=== PATIENT | female | born 1945 | race Caucasian/White ===

== ENCOUNTER 2017-12-23 09:50 | Emergency (ER) | payer MEDICARE, OTHER ==
--- NOTE | 2017-12-23 11:09 | XRAY Preliminary Report ---
Exam: XR CHEST 2 VIEW X-RAY IMPRESSION: 1. No consolidation or heart failure. 2. Mildly prominent lung markings, nonspecific for age. [facility] SITE ID: [id number]
--- NOTE | 2017-12-23 11:09 | XRAY Report ---
EXAM: CHEST RADIOGRAPHY EXAM DATE: 12/23/2017 10:28 AM. CLINICAL HISTORY: Productive cough. COMPARISON: None. TECHNIQUE: 2 views. FINDINGS: Lungs/Pleura: Mild apical pleural-parenchymal scarring. Mild diffuse bronchial wall thickening, nonsp ecific for age. No consolidation or vascular congestion. No pneumothorax or pleural effusion. Mediastinum: Normal heart size. Mildly tortuous aorta. Other: Mild scoliosis. Post surgical changes left shoulder. No acute fracture evident. IMPRESSION: 1. No consolidation or heart failure. 2. Mildly prominent lung markings, nonspecific for age. [facility] Referring Provider Line: [phone] SITE ID: [id number]
--- NOTE | 2017-12-23 12:06 | ED Physician Documentation ---
PD HPI URI - Stated complaint Stated Complaint: COUGH - Chief complaint Chief Complaint: Resp - History obtained from History obtained from: Patient - History of Present Illness Timing - onset: How many days ago (2 days of cough and green sputum, feeling malaise. Had had URI week or so ago and continued with some congestion from that , now with significant cough.) Timing duration: Days Timing details: Abrupt onset, Still present Associated symptoms: Chills, Nasal congestion, Productive cough, Dyspnea. No: Fever, Hemoptysis, Chest pain, Bilateral edema Contributing factors: No: Sick contact, Travel, Immunocompromised, COPD / asthma Similar symptoms before: Diagnosis (bronchitis and pneumonia) Recently seen: Not recently seen Review of Systems Constitutional: reports: Chills, Myalgias. denies: Fever Nose: reports: Congestion (for 1-2 weeks) Throat: denies: Sore throat Cardiac: denies: Chest pain / pressure, Palpitations Respiratory: reports: Cough (for 2 days), Wheezing. denies: Dyspnea GI: denies: Nausea, Vomiting, Diarrhea Musculoskeletal: denies: Neck pain, Back pain Neurologic: reports: Generalized weakness. denies: Difficulty speaking, Near syncope Endocrine: denies: Easy bruising / bleeding PD PAST MEDICAL HISTORY - Past Medical History Past Medical History: No - Past Surgical History Past Surgical History: Yes Ortho: Hip replacement, Other - Present Medications Home Medications: Ambulatory Orders Medication Instructions Recorded Confirmed Amoxicillin 500 mg PO TID #20 capsule 12/23/17 Benzonatate [Tessalon] 100 mg PO TID PRN #25 capsule 12/23/17 Dexamethasone [Decadron] 4 mg PO DAILY #5 tablet 12/23/17 - Allergies Allergies/Adverse Reactions: Allergies Allergy/AdvReac Type Severity Reaction Status Date / Time No Known Drug Allergies Allergy Verified 12/23/17 10:16 - Social History Does the pt smoke?: No Smoking Status: Never smoker Does the pt drink ETOH?: No Does the pt have substance abuse?: No - Immunizations Immunizations are current?: Yes - POLST Patient has POLST: No PD ED PE NORMAL - Vitals Vital signs reviewed: Yes - General General: Alert and oriented X 3, No acute distress, Well developed/nourished - Neck Neck: Supple, no meningeal sign, No adenopathy - Cardiac Cardiac: RRR (mild tachy), No murmur - Respiratory Respiratory: No: Clear bilaterally (some exp wheezing noted. Cantral hilar area with congested sounds; periphery sounds okay. ) - Abdomen Abdomen: Soft, Non tender - Derm Derm: Normal color, Warm and dry - Extremities Extremities: No tenderness to palpate, Normal ROM s pain, No edema, No calf tenderness / cord - Neuro Neuro: Alert and oriented X 3, No motor deficit, Normal speech Results - Vitals Vitals: Vital Signs - 24 hr 12/23/17 12/23/17 10:13 12:44 Temperature 36.8 C Heart Rate 108 H 97 Respiratory 16 18 Rate Blood Pressure 132/93 H 143/100 H O2 Saturation 97 96 - Labs Labs: Laboratory Tests 12/23/17 10:19 Influenza A (Rapid) Negative Influenza B (Rapid) Negative Influenza Types A,B Ag - - Rads (name of study) chest Radiology: Prelim report reviewed, EMP read contemporaneously (no infiltrates) PD MEDICAL DECISION MAKING - ED course Complexity details: considered differential, d/w patient Departure - Departure Disposition: 01 Home, Self Care Clinical Impression: Upper respiratory infection Qualifiers: URI type: unspecified URI Qualified Code(s): J06.9 - Acute upper respiratory infection, unspecified Condition: Stable Record reviewed to determine appropriate education?: Yes Instructions: ED Upper Resp Infec Abx Tx Prescriptions: Amoxicillin 500 mg PO TID #20 capsule Benzonatate [Tessalon] 100 mg PO TID PRN #25 capsule PRN Reason: Cough Dexamethasone [Decadron] 4 mg PO DAILY #5 tablet Comments: Drink lots of fluids. Amoxicillin 3 times a day for a week. Decadron daily for 5 more days to reduce bronchial inflammation. Add Tessalon if needed for cough. [id number] cough medicine is okay to. Tylenol or ibuprofen if needed for fevers and pains. Recheck if not improving over the next few days. Discharge Date/Time: 12/23/17 12:45
[2017-12-23 12:45] VITALS: BP 143/100
== END 2017-12-23 12:45 | disposition home or self-care (01) ==
LOC: ED 09:50
DX: J06.9 Acute upper respiratory infection, unspecified (principal); Z96.649 Presence of unspecified artificial hip joint
CPT/HCPCS: 71046; 87275; 87276; 99283